=== PATIENT | male | born 1975 | race American Indian/Alaskan Native ===

== ENCOUNTER 2021-05-23 15:43 | Emergency (ER) | payer SELFPAY | END 2021-05-23 16:12 | disposition left against medical advice (07) | LOC: ED 15:43 | DX: R07.9 Chest pain, unspecified (principal); Z53.21 Procedure and treatment not carried out due to patient leaving prior to being seen by health care provider ==

== ENCOUNTER 2021-05-28 21:13 | Emergency (ER) | payer SELFPAY ==
[2021-05-28] MEDS ORDERED: ASPIRIN 325 MG TAB PO ONE (22:09)
--- NOTE | 2021-05-28 22:12 | Emergency Department Report ---
ED Chest Pain HPI - General Chief Complaint: Chest Pain Stated Complaint: CHEST PAIN/HEADACHE PUI?: No Time Seen by Provider: 05/28/21 22:03 Source: patient Mode of arrival: Ambulatory Limitations: No Limitations - History of Present Illness Initial Comments: Patient is a 45-year-old male who presents emergency room with complaints of chest pain. Patient states chest pain is in the substernal region. Patient states the chest pain is worsening. Patient states chest pain started a week ago. Patient states that he went to [facility] yesterday and was evaluated and never had any labs or EKG done. Patient states they discharged him without doing anything. Patient states he is also having shortness of breath and dyspnea on exertion. Patient states his shortness of breath and dyspnea exertion started a week ago as well. Patient dates his chest pain is better with rest and worse with movement and exertion. Patient states that his shortness of breath is better with rest and worse with exertion. Patient denies fever and chills. Patient denies abdominal pain. Patient denies nausea vomiting. Patient states 3 years ago he had a stress test done at [facility] and it was normal and they only told him that he needed to control his blood pressure. Patient states he has history of high blood pressure but is not taking any medications. Patient denies diabetes and hyperlipidemia. Patient dates he has not seen a doctor for many years except when he goes to the emergency room. Patient also complains of a headache. Patient states the headache is a 3 out of 10. Patient states it is a global headache. Patient denies blurry vision. Patient denies visual changes. Patient denies head injury. Patient denies fever and chills. Patient denies neck stiffness. Patient states he is not vaccinated against COVID-19. Patient denies recent travel. Patient denies recent international travel. Patient denies exposure to the novel coronavirus. Patient denies sick contacts. Patient denies fever and chills. Patient denies cough. Patient denies diarrhea. Patient denies coming in contact with anybody with symptoms of the novel coronavirus. Complaint: chest pain -: Sudden Onset: during rest Pain Location: substernal Pain Radiation: none Severity: severe Severity scale (0 -10): 10 Quality: sharp Consistency: constant Improves With: rest Worsens With: exertion, movement re: dyspnea. denies: nausea, vomting, diaphoresis, sense of impending doom Other Symptoms: denies: cough, fever, syncope, rash, acid taste in mouth, leg swelling, palpitations, burping Treatments Prior to Arrival: none Aspirin use within the Past 7 Days: (0) No - Related Data On Oral Contraceptives: No Allergies Allergy/AdvReac Type Severity Reaction Status Date / Time No Known Allergies Allergy Unverified 05/28/21 21:36 Heart Score - HEART Score History: Slightly suspicious EKG: Normal Age: 45-65 Risk factors: No known risk factors Troponin: < normal limit HEART Score: 1 - EKG Read Time Time EKG Completed: 21:27 EKG Read Time: 21:29 ED Review of Systems ROS: Stated complaint: CHEST PAIN/HEADACHE Other details as noted in HPI Constitutional: denies: chills, fever Eyes: denies: eye pain, eye discharge, vision change ENT: denies: ear pain, throat pain Respiratory: see HPI, shortness of breath. denies: cough, wheezing Cardiovascular: as per HPI, chest pain. denies: palpitations Endocrine: no symptoms reported Gastrointestinal: denies: abdominal pain, nausea, diarrhea Genitourinary: denies: urgency, dysuria Musculoskeletal: denies: back pain, joint swelling, arthralgia Skin: denies: rash, lesions Neurological: denies: headache, weakness, paresthesias Psychiatric: denies: anxiety, depression Hematological/Lymphatic: denies: easy bleeding, easy bruising ED Past Medical Hx - Past Medical History Previous Medical History?: Yes Hx Hypertension: Yes - Surgical History Past Surgical History?: No - Family History Family history: no significant - Social History Smoking Status: Never Smoker Substance Use Type: None ED Physical Exam - General Limitations: No Limitations General appearance: alert, in no apparent distress - Head Head exam: Present: atraumatic, normocephalic - Eye Eye exam: Present: normal appearance - ENT ENT exam: Present: mucous membranes moist - Neck Neck exam: Present: normal inspection - Respiratory Respiratory exam: Present: normal lung sounds bilaterally, chest wall tenderness. Absent: respiratory distress, wheezes, rales - Cardiovascular Cardiovascular Exam: Present: regular rate, normal rhythm. Absent: systolic murmur, diastolic murmur, rubs, gallop - GI/Abdominal GI/Abdominal exam: Present: soft, normal bowel sounds - Rectal Rectal exam: Present: deferred - Extremities Exam Extremities exam: Present: normal inspection - Back Exam Back exam: Present: normal inspection - Neurological Exam Neurological exam: Present: alert, oriented X3 - Psychiatric Psychiatric exam: Present: normal affect, normal mood - Skin Skin exam: Present: warm, dry, intact, normal color. Absent: rash ED Course Vital Signs 05/28/21 05/28/21 05/28/21 21:32 22:40 22:51 Temperature 98.8 F Pulse Rate 84 Respiratory 18 Rate Blood Pressure 122/79 Blood Pressure [Right] O2 Sat by Pulse 97 100 97 Oximetry 05/28/21 05/28/21 05/29/21 22:55 23:46 00:00 Temperature 98.1 F Pulse Rate 84 64 63 Respiratory 16 16 16 Rate Blood Pressure 106/70 106/62 Blood Pressure 135/74 [Right] O2 Sat by Pulse 100 94 94 Oximetry 05/29/21 05/29/21 00:16 00:25 Temperature Pulse Rate 66 71 Respiratory 16 16 Rate Blood Pressure 106/62 Blood Pressure [Right] O2 Sat by Pulse 97 96 Oximetry - Reevaluation(s) Reevaluation #1: I discussed all results and clinical findings with patient. I discussed plan of care with patient. Patient agrees with plan of care. Patient is stable for discharge. Patient will be discharged home. Patient given discharge instructions. Patient voiced understanding of discharge instructions. 05/29/21 00:06 MORENA score - Morena Score Age > 65: (0) No Aspirin use within the Past 7 Days: (0) No 3 or more CAD Risk Factors: (0) No 2 or more Angina events in past 24 hrs: (0) No Known CAD with more than 50% Stenosis: (0) No Elevated Cardiac Markers: (0) No ST Deviation Greater than 0.5mm: (0) No MORENA Score: 0 ED Medical Decision Making - Lab Data Result diagrams: 05/28/21 22:38 05/28/21 22:38 - EKG Data -: EKG Interpreted by Me EKG shows normal: sinus rhythm, axis, intervals, QRS complexes, ST-T waves Rate: normal - Radiology Data Radiology results: report reviewed, image reviewed interpreted by me: Chest x-ray: No pneumonia, no pneumothorax, no foreign body, no osseous findings, no acute findings CHEST 2 VIEWS INDICATION / CLINICAL INFORMATION: Chest Pain. COMPARISON: None available. FINDINGS: SUPPORT DEVICES: None. HEART / MEDIASTINUM: No significant abnormality. LUNGS / PLEURA: No significant pulmonary or pleural abnormality. No pneumothorax. ADDITIONAL FINDINGS: No significant additional findings. IMPRESSION: 1. No acute findings. - Medical Decision Making Patient is a 45-year-old male who presents emergency room with complaints of chest pain. Patient states the chest pain had been going on for a week. Patient's chest pain is reproducible with movement and palpation. Patient is only past medical history is hypertension. Patient had labs done which were essentially unremarkable. Patient's troponin was negative. Patient's EKG is negative for acute findings and showed a normal ST and a sinus rhythm. Patient had a chest x-ray done which shows no acute findings. I personally reviewed the EKG and the chest x-ray. Patient's chest pain is low risk. Patient's heart score is low. Patient's chest pain can be followed up as an outpatient. Patient does not require any further emergency medical service. Patient not require inpatient services. Patient is stable for discharge. Patient will be discharged home. Patient information faxed over to her local cardiology group for further evaluation and risk stratification of his chest pain. I discussed all results and clinical findings with patient. I discussed plan of care with patient. Patient agrees with plan of care. Patient is stable for discharge. Patient will be discharged home. Patient given discharge instructions. Patient voiced understanding of discharge instructions. - Differential Diagnosis Chest pain, chest wall pain, pneumonia, bronchitis Critical care attestation.: If time is entered above; I have spent that time in minutes in the direct care of this critically ill patient, excluding procedure time. ED Disposition Clinical Impression: Chest wall pain Chest pain Qualifiers: Chest pain type: unspecified Qualified Code(s): R07.9 - Chest pain, unspecified Disposition: HOME / SELF CARE / HOMELESS Is pt being admited?: No Does the pt Need Aspirin: No Condition: Stable Instructions: Nonspecific Chest Pain, Adult, Chest Wall Pain, Costochondritis Additional Instructions: Patient to follow-up with primary care in 2 to 3 days. Patient to follow-up with [facility] in 2 to 3 days. Patient to rest. Patient to increase water. Patient to avoid strenuous exercise or heavy lifting until cleared by [facility]. Patient to take Tylenol or ibuprofen as needed for pain. Patient to take 81 mg aspirin daily until cleared by [facility]. Patient to return to the ER if condition worsens, changes or new symptoms arise. Referrals: PRIMARY CARE, [Primary Care Provider] - 2-3 Days ZACHARY LUNA MD [Staff Physician] - 2-3 Days Time of Disposition: 00:05
--- NOTE | 2021-05-28 22:50 | XRay Report ---
CHEST 2 VIEWS INDICATION / CLINICAL INFORMATION: Chest Pain. COMPARISON: None available. FINDINGS: SUPPORT DEVICES: None. HEART / MEDIASTINUM: No significant abnormality. LUNGS / PLEURA: No significant pulmonary or pleural abnormality. No pneumothorax. ADDITIONAL FINDINGS: No significant additional findings. IMPRESSION: 1. No acute findings. Signer Name: Mikey Baer MD Signed: 05/28/2021 10:45 PM Workstation Name: [id number]
[2021-05-28 23:15] LABS: Basophils % (Auto) 0.3 % (0.0-1.8); Eosinophils # (Auto) 0.1 K/mm3 (0.0-0.4); Eosinophils % (Auto) 1.7 % (0.0-4.3); Lymphocytes # (Auto) 2.5 K/mm3 (1.2-5.4); Lymphocytes % (Auto) 41.9 % (13.4-35.0); Monocytes # (Auto) 0.5 K/mm3 (0.0-0.8); Monocytes % (Auto) 8.9 % (0.0-7.3)
[2021-05-28 23:32] LABS: Alanine Aminotransferase 49 units/L (7-56); Albumin 4.4 g/dL (3.9-5); BUN/Creatinine Ratio 12; Blood Urea Nitrogen 14 mg/dL (9-20); Calcium 8.7 mg/dL (8.4-10.2); Hemolysis Index 7
[2021-05-28 23:59] LABS: Hematocrit 43.7 % (35.5-45.6); Mean Corpuscular HGB Conc 35 % (32-34); Mean Corpuscular Volume 85 fl (84-94); Platelet Count 183 K/mm3 (140-440); Red Blood Count 5.14 M/mm3 (3.65-5.03); Red Cell Distribution Width 14.9 % (13.2-15.2)
[2021-05-29 00:18] VITALS: BP 106/62
--- NOTE | 2021-05-30 13:25 | Electrocardiograph Report ---
[facility] Test Date: 2021-05-28 Test Time: 21:27:44 Pat Name: MAGUE ALVAREZ Department: Room: Gender: M [employer] Instructor: NURSE : 1975 Requested By: ALBERT HUERTA III Order Number: [id number] Reading MD: Keyon Herbert Measurements Intervals [place] Rate: 79 P: 18 NC: 161 QRS: 22 QRSD: 78 T: -8 QT: 346 QTc: 397 Interpretive Statements Sinus rhythm No previous ECG available for comparison Electronically Signed On 05-30-2021 13:24:46 EDT by Keyon Herbert
== END 2021-05-29 00:25 | disposition home or self-care (01) ==
LOC: ED 21:13
DX: R07.89 Other chest pain (principal); R07.9 Chest pain, unspecified; I10 Essential (primary) hypertension
CPT/HCPCS: 36415; 71046; 80053; 84484; 85025; 93005; 99284